=== PATIENT | male | born 1950 | race Caucasian/White ===

== ENCOUNTER 2019-02-26 13:42 | Emergency (ER) | payer OTHER ==
[2019-02-26 13:48] VITALS: BMI 30.7
[2019-02-26] MEDS ORDERED: ONDANSETRON 4 MG/2 ML VIAL IVPUSH ONE (13:51)
--- NOTE | 2019-02-26 13:51 | PDOC ---
Rapid Medical Evaluation Chief Complaint: Nausea/Vomiting Time Seen by Provider: 02/26/19 13:48 Medical Evaluation: Allergies Allergy/AdvReac Type Severity Reaction Status Date / Time No Known Allergies Allergy Verified 05/20/17 15:04 Vital Signs Temp Pulse Resp BP Pulse Ox 98 F 111 H 20 120/80 97 02/26/19 13:44 02/26/19 13:44 02/26/19 13:44 02/26/19 13:44 02/26/19 13:44 02/26/19 13:49 CC: lower abdominal pain with n/v and dizziness PE: ABD SNTND. Gait steady. Orders: abdominal w/u Patient will proceed to ED for continued evaluation. Discharge Disposition - Diagnosis Abdominal pain - Referrals - Patient Instructions - Post Discharge Activity
[2019-02-26] MEDS ORDERED: SODIUM CHLORIDE 1,000 ML IV STA (13:59)
[2019-02-26] MEDS ORDERED: MAG HYDROX/AL HYDROX/SIMETH 30 ML UNIT-DOSE CUP PO ONE (14:16)
[2019-02-26] MEDS ORDERED: FAMOTIDINE 20 MG/50 ML IVPB 20 MG/50 ML MG IVPB ONE ×2 (14:16→14:37)
[2019-02-26] MEDS ORDERED: ACETAMINOPHEN 1000 MG/100 ML VIAL (NON FORMULARY) IVPB ONE (14:16)
--- NOTE | 2019-02-26 14:23 | PDOC ---
History of Present Illness - General Chief Complaint: Nausea/Vomiting Stated Complaint: VOMITING/ ABD PAIN Time Seen by Provider: 02/26/19 13:48 History Source: Patient, Spouse Exam Limitations: Language Barrier - History of Present Illness Travel History: No Initial Comments: 02/26/19 14:19 68yo M with PMH of HTN, HLD presenting to ED with complaints of nausea and vomiting that started this AM around 0530. He has had 4 episodes of emesis which have been yellow in color. He has not tried eating anything due to the nausea. Last BM was this AM and was normal in consistency but he says it was a little amount. The pain is crampy, intermittent, in the lower abdomen and radiates to L flank. He denies recent travel, bloody stools, hematuria, dysuria , fevers, chills, chest pain, cough, recent travel, sick contacts. PMD: Brett PMH: see hpi PSH: mass removal? Meds: lisinopril Allergies: nkda Past History - Past Medical History Allergies/Adverse Reactions: Allergies Allergy/AdvReac Type Severity Reaction Status Date / Time No Known Allergies Allergy Verified 05/20/17 15:04 Home Medications: Ambulatory Orders Albuterol Sulfate Inhaler - [Ventolin HFA Inhaler -] 1 - 2 inh PO Q4H #1 inhaler 07/08/16 Ibuprofen 600 mg PO TID PRN #21 tablet 05/20/17 Lisinopril [Prinivil] 20 mg PO DAILY 05/20/17 Simvastatin 40 mg PO DAILY 05/20/17 Famotidine [Pepcid -] 20 mg PO BID #14 tablet 02/26/19 Hydrochlorothiazide [Hctz -] 12.5 mg PO DAILY 02/26/19 COPD: No Disorders: Yes (BURNING) HTN: Yes Hypercholesterolemia: Yes - Suicide/Smoking/Psychosocial Hx Smoking Status: No Smoking History: Never smoked Number of Cigarettes Smoked Daily: 0 Hx Alcohol Use: Yes Drug/Substance Use Hx: No Substance Use Type: Alcohol Hx Substance Use Treatment: No Review of Systems - Review of Systems Constitutional: No: Symptoms Reported HEENTM: No: Symptoms Reported Respiratory: No: Symptoms reported Cardiac (ROS): Yes: Lightheadedness ABD/GI: Yes: See HPI : No: Symptoms Reported Musculoskeletal: No: Symptoms Reported Integumentary: No: Symptoms Reported Neurological: No: Symptoms reported *Physical Exam - Vital Signs Last Vital Signs Temp Pulse Resp BP Pulse Ox 98 F 111 H 20 120/80 97 02/26/19 13:44 02/26/19 13:44 02/26/19 13:44 02/26/19 13:44 02/26/19 13:44 - Physical Exam General Appearance: Yes: Appropriately Dressed, Obese. No: Apparent Distress HEENT: positive: EOMI, JESSIKA, Normal ENT Inspection, Pharynx Normal Neck: positive: Trachea midline, Supple Respiratory/Chest: positive: Lungs Clear, Normal Breath Sounds. negative: Crackles, Rales, Rhonchi, Stridor, Wheezing Cardiovascular: positive: Regular Rhythm, Regular Rate, S1, S2. negative: Edema , JVD, Murmur Vascular Pulses: Dorsalis-Pedis (R): 2+, Doralis-Pedis (L): 2+ Gastrointestinal/Abdominal: positive: Normal Bowel Sounds, Tender (epigastric tenderness), Soft. negative: Distended, Guarding, Rebound Musculoskeletal: negative: CVA Tenderness Extremity: positive: Normal Capillary Refill Integumentary: positive: Normal Color, Dry, Warm Neurologic: positive: anesthesiology faculty II-XII NML intact, Fully Oriented, Alert, Normal Mood/ Affect, Normal Response, Motor Strength / ED Treatment Course - LABORATORY CBC & Chemistry Diagram: 02/26/19 14:20 02/26/19 14:20 Medical Decision Making - Medical Decision Making 02/26/19 14:23 68yo M with PMH of HTN, HLD presenting to ED with complaints of nausea and vomiting that started this AM around 0530. He has had 4 episodes of emesis which have been yellow in color. He has not tried eating anything due to the nausea. Last BM was this AM and was normal in consistency but he says it was a little amount. The pain is crampy, intermittent, in the lower abdomen and radiates to L flank. He denies recent travel, bloody stools, hematuria, dysuria , fevers, chills, chest pain, cough, recent travel, sick contacts. Vitals: PE: epigastric tenderness. ddx includes but not limited to atypical acs, gerd, gastritis, sbo, ileus, aaa labs, iv fluids, zofran, pepcid, maalox, tylenol, ctap 02/26/19 15:33 ekg: nsr at 93bpm. pr 158 qtc 427. no seth or depressions. wi in III. Flat T waves in V5-V6. No chest pain. pocus peformed by rotator: no hydro, normal aorta. CTAP: L adrenal cyst otherwise no acute patholoyg. labs wnl. patient feeling bettter. repeat exam no tenderness. tolerating po. safe for dc home. will give rx for pepcid and gi f/u. *DC/Admit/Observation/Transfer Diagnosis at time of Disposition: Abdominal pain Qualifiers: Abdominal location: unspecified location Qualified Code(s): R10.9 - Unspecified abdominal pain Nausea & vomiting Qualifiers: Vomiting type: unspecified Vomiting Intractability: non-intractable Qualified Code(s): R11.2 - Nausea with vomiting, unspecified - Discharge Dispostion Disposition: HOME Condition at time of disposition: Improved Decision to Admit order: No - Prescriptions Prescriptions: Famotidine [Pepcid -] 20 mg PO BID #14 tablet - Referrals Referrals: Franklin West MD [Primary Care Provider] - Stef Bateman MD [Staff Physician] - - Patient Instructions Printed Discharge Instructions: DI for Abdominal Pain-Adult, DI for Vomiting - - Adult Additional Instructions: You were seen in the emergency room today for abdominal pain, nausea and vomiting. The blood work is normal, and the CT scan is normal. You may have gastritis. I recommend a liquid diet for the next day or two. If you can tolerate that then you can move on to soft solids like bananas, rice, applesauce and toast. If you can tolerate that then you can eat a normal diet. Try not to drink alcohol, coffee, eat acidic, fried or fatty foods. A referral to a GI doctor is provided below. Please make an appointment with your primary care doctor this week regarding this ED visit. A prescription for an antacid was sent to your pharmacy. Take as directed. Come back to the emergency room for worsening pain, you have blood in the stool , you are unable to eat or drink anything, you develop fever or if any new concerning symptom develops. Thank you Hoy lo vieron en la rubén de emergencias por dolor abdominal, nuseas y vmitos. El anlisis de ermelinda es normal y la tomografa computarizada es normal. Puedes tener gastritis. Recomiendo man dieta lquida para el siguiente da o dos. Si puede tolerar eso, puede pasar a slidos blandos cortney pltanos, arroz, pur de manzana y tostadas. Si puedes tolerar eso, entonces puedes comer man dieta normal. Trate de no beber alcohol, caf, comer alimentos cidos, fritos o grasos. A continuacin se proporciona man derivacin a un mdico GI. [place] man ericka con elizondo mdico de atencin primaria esta semana con respecto a esta visita al [place]. Se envi man receta para un anticido a elizondo farmacia. Tmelo cortney se le indique. Regrese a la rubén de emergencias para empeorar el dolor, tiene ermelinda en las heces, no puede comer ni beber nada, desarrolla fiebre o si se desarrolla algn sntoma nuevo. Mynor Print Language: WELSH - Post Discharge Activity
[2019-02-26] MEDS ORDERED: ONDANSETRON 4 MG/2 ML VIAL ONE (14:32)
[2019-02-26 14:33] LABS: BASO % 0.1 % (0-2.0); EOS % 0.3 % (0-4.5); HEMATOCRIT 44.9 % (35.4-49); HEMOGLOBIN 15.4 GM/dL (11.7-16.9); LYMPH % 4.2 % (8-40); MCH 29.8 pg (25.7-33.7); MCHC 34.3 g/dl (32.0-35.9); MEAN CELL VOLUME 86.9 fl (80-96); MEAN PLT VOLUME 8.1 fl (7.5-11.1); MONO % 2.9 % (3.8-10.2); NEUT % 92.5 % (42.8-82.8); PLATELET COUNT 290 K/MM3 (134-434); RBC 5.17 M/mm3 (4.00-5.60); RDW 13.7 % (11.9-15.9); WHITE BLOOD COUNT 9.3 K/mm3 (4.0-10.0)
[2019-02-26] MEDS ORDERED: ACETAMINOPHEN INJECTION 100 ML IVPB ONE (14:37)
[2019-02-26] MEDS ORDERED: MAG HYDROX/AL HYDROX/SIMETH 30 ML UNIT-DOSE CUP ONE (14:37)
[2019-02-26 15:19] LABS: ALBUMIN 3.6 g/dl (3.4-5.0); ALK PHOS 53 U/L (45-117); ANION GAP 7 MMOL/L (8-16); BILIRUBIN,TOTAL 0.4 mg/dL (0.2-1); BLOOD UREA NITROGEN 18.3 mg/dL (7-18); CALCIUM 9.2 mg/dL (8.5-10.1); CHLORIDE 107 mmol/L (98-107); CO2 26 mmol/L (21-32); CREATININE 1.1 mg/dL (0.55-1.3); GLUCOSE,RANDOM 112 mg/dL (74-106); SGOT/AST 20 U/L (15-37); SGPT/ALT 21 U/L (13-61); SODIUM 140 mmol/L (136-145); TOT PROT 7.3 g/dl (6.4-8.2)
[2019-02-26 16:30] LABS: EPI CELLS 2.2 /HPF (0-5/HPF); HYALINE CASTS 11 /lpf (0-8); URINE APPEARANCE CLEAR; URINE BACTERIA 5.7 /hpf (NEGATIVE); URINE BILIRUBIN NEGATIVE (NEGATIVE); URINE COLOR YELLOW; URINE GLUCOSE (UA) NEGATIVE (NEGATIVE); URINE KETONE TRACE (NEGATIVE); URINE LEUK ESTERASE 2+ (NEGATIVE); URINE NITRITE NEGATIVE (NEGATIVE); URINE PROTEIN NEGATIVE (NEGATIVE); URINE RBC 7 /hpf (0-4); URINE UROBILINOGEN 0.2 mg/dL (0.2-1.0); URINE WBC 2 /hpf (0-5)
[2019-02-26 18:33] VITALS: BP 107/71; PULSE 67; TEMP 98
--- NOTE | 2019-02-27 16:16 | EKG ---
Test Reason : Blood Pressure : / mmHG Vent. Rate : 093 BPM Atrial Rate : 093 BPM P-R Int : 158 ms QRS Dur : 086 ms QT Int : 344 ms P-R-T Axes : 040 -14 008 degrees QTc Int : 427 ms NORMAL SINUS RHYTHM NORMAL ECG WHEN COMPARED WITH ECG OF 08-JUL-2016 10:53, NO SIGNIFICANT CHANGE WAS FOUND Confirmed by MD REBECA, STEVEN ([id number]) on 02/27/2019 4:16:08 PM Referred By: Confirmed By:STEVEN JOSE MD
== END 2019-02-26 18:36 | disposition home or self-care (01) ==
LOC: JER 13:42
PROC: 3E033NZ Introduction of Analgesics, Hypnotics, Sedatives into Peripheral Vein, Percutaneous Approach (ICD-10-PCS; principal; 2019-02-26)
PROC: 3E033GC Introduction of Other Therapeutic Substance into Peripheral Vein, Percutaneous Approach (ICD-10-PCS; 2019-02-26)
PROC: 3E0337Z Introduction of Electrolytic and Water Balance Substance into Peripheral Vein, Percutaneous Approach (ICD-10-PCS; 2019-02-26)
DX: R11.2 Nausea with vomiting, unspecified (principal); R10.30 Lower abdominal pain, unspecified; I10 Essential (primary) hypertension; E78.5 Hyperlipidemia, unspecified
CPT/HCPCS: 36415; 74177-TC; 80053; 81003; 83690; 84484; 85025; 87086; 93005; 93010; 96361; 96365; 96375; 99283-25; J0131; J7030

== ENCOUNTER 2019-08-27 17:18 | Emergency (ER) | payer OTHER ==
[2019-08-27 17:52] VITALS: BMI 30.7
--- NOTE | 2019-08-27 17:52 | PDOC ---
Rapid Medical Evaluation Chief Complaint: Wound Time Seen by Provider: 08/27/19 17:49 Medical Evaluation: Allergies Allergy/AdvReac Type Severity Reaction Status Date / Time No Known Allergies Allergy Verified 08/27/19 17:49 08/27/19 17:50 I performed a brief in-person evaluation of this patient. 68-year-old male with HTN, varicose veins presenting with 2 wks of right leg redness, pain, swelling. No CP or SOB. Pertinent physical exam findings: Large area of rerythema, induration right posterior thigh/ I have ordered the following: CBC, CMP, PT/INR RLE u/s r/o DVT Patient to proceed to ED for further evaluation. Discharge Disposition - Diagnosis Leg pain - Referrals - Patient Instructions - Post Discharge Activity
--- NOTE | 2019-08-27 18:29 | PDOC ---
History of Present Illness - General Chief Complaint: Wound Stated Complaint: PAIN Time Seen by Provider: 08/27/19 17:49 History Source: Patient - History of Present Illness Initial Comments: Mr. Minaya is a 68 y/o M w/hx HTN, HLD p/w two weeks of RLE pain, itching along a varicose vein. He reports that the varicose vein has been there for a long time, but has never become painful before. He reports that the pain is intermittent/localized over the vein, 02/17 and he presents today due to how long the symptoms have lasted. He denies hx of DVTs, PEs. He denies similar tender veins anywhere else, nor any prior vascular surgery or surgery of the RLE. Past History - Past Medical History Allergies/Adverse Reactions: Allergies Allergy/AdvReac Type Severity Reaction Status Date / Time No Known Allergies Allergy Verified 08/27/19 17:49 Home Medications: Ambulatory Orders Albuterol Sulfate Inhaler - [Ventolin HFA Inhaler -] 1 - 2 inh PO Q4H #1 inhaler 07/08/16 Ibuprofen 600 mg PO TID PRN #21 tablet 05/20/17 Lisinopril [Prinivil] 20 mg PO DAILY 05/20/17 Simvastatin 40 mg PO DAILY 05/20/17 Famotidine [Pepcid -] 20 mg PO BID #14 tablet 02/26/19 Rivaroxaban [Xarelto] 15 mg PO BID #42 tab 08/27/19 COPD: No Disorders: Yes (BURNING) HTN: Yes Hypercholesterolemia: Yes - Psycho Social/Smoking Cessation Hx Smoking Status: No Smoking History: Never smoked Number of Cigarettes Smoked Daily: 0 Hx Alcohol Use: No Drug/Substance Use Hx: No Substance Use Type: Alcohol Hx Substance Use Treatment: No Review of Systems - Review of Systems Able to Perform ROS?: Yes Comments:: GENERAL/CONSTITUTIONAL: No fever or chills. No weakness. HEAD, EYES, EARS, NOSE AND THROAT: No change in vision. No ear pain or discharge. No sore throat. CARDIOVASCULAR: No chest pain or shortness of breath RESPIRATORY: No cough, wheezing, or hemoptysis. GASTROINTESTINAL: No nausea, vomiting, diarrhea or constipation. GENITOURINARY: No dysuria, frequency, or change in urination. MUSCULOSKELETAL: RLE pain. No joint or muscle swelling or pain. No neck or back pain. SKIN: Varicose vein. No rash NEUROLOGIC: No headache, vertigo, loss of consciousness, or change in strength/sensation. ENDOCRINE: No increased thirst. No abnormal weight change HEMATOLOGIC/LYMPHATIC: No anemia, easy bleeding, or history of blood clots. ALLERGIC/IMMUNOLOGIC: No hives or skin allergy. *Physical Exam - Vital Signs Last Vital Signs Temp Pulse Resp BP Pulse Ox 97.8 F 79 18 153/83 97 08/27/19 17:50 08/27/19 17:50 08/27/19 17:50 08/27/19 17:50 08/27/19 17:50 - Physical Exam GENERAL: Awake, alert, and fully oriented, in no acute distress HEAD: No signs of trauma, normocephalic, atraumatic EYES: PERRLA, EOMI, sclera anicteric, conjunctiva clear ENT: Auricles normal inspection, hearing grossly normal, nares patent, or opharynx clear without exudates. Moist mucosa NECK: Normal ROM, supple, no lymphadenopathy, JVD, or masses LUNGS: No distress, speaks full sentences, clear to auscultation bilaterally HEART: Regular rate and rhythm, normal S1 and S2, no murmurs, rubs or gallops, peripheral pulses normal and equal bilaterally. ABDOMEN: Soft, nontender, normoactive bowel sounds. No guarding, no rebound. No masses EXTREMITIES : Superficial thrombophlebitis visualized over RLE. Otherwise Normal inspection, Normal range of motion, no edema. No clubbing or cyanosis NEUROLOGICAL: Cranial nerves II through XII grossly intact. Normal speech, normal gait, no focal sensorimotor deficits SKIN: Warm, Dry, normal turgor, no rashes or lesions noted Medical Decision Making - Medical Decision Making 08/27/19 18:32 68M w/hx HTN p/w pain, pruritis over R medial leg over distribution of existing varicose vein, likely representing superficial thrombophlebitis. Ddx includes uncomplicated thrombophlebitis vs blood clot formation within vein. Plan: Duplex US RLE Ibuprofen 600 mg for pain Xarelto Dispo: Discharge with xarelto, close follow up with vascular surgery. --- US - no DVT or clot visualized. Plan for discharge as above, alongside compression stockings, motrin for symptom control. Discharge - Discharge Information Problems reviewed: Yes Clinical Impression/Diagnosis: Superficial thrombophlebitis of right leg Leg pain Qualifiers: Laterality: right Qualified Code(s): M79.604 - Pain in right leg Condition: Stable Disposition: HOME - Admission No - Additional Discharge Information Prescriptions: Rivaroxaban [Xarelto] 15 mg PO BID #42 tab - Follow up/Referral Referrals: Franklin West MD [Primary Care Provider] - Josep Gunn MD [Non Staff, Medical] - - Patient Discharge Instructions Patient Printed Discharge Instructions: DI for Superficial Thrombophlebitis Additional Instructions: Usted fue evaluado en la rubén de urgencias por dolor de la pierna. Pensamos que elizondo dolor es resulto de halgo llamado "superficial thrombophlebitis". Man condicion donde man vena varicose se inflama, olivarez veces causado por un coagulo en la pierna. El ultrasonido demonstro un coagulo en elizondo vena. Por favor marietta Xarelto dos veces cada hayley. Melly medicamento hace elizondo ermelinda menos espeso - es muy importante que ve a elizondo doctor de cabezera esta semana que viene. Print Language: MALTESE - Post Discharge Activity
[2019-08-27] MEDS ORDERED: IBUPROFEN 600 MG TABLET (FP) PO ONE ×2 (18:30→18:33)
--- NOTE | 2019-08-27 18:33 | PDOC ---
Attending Attestation - Resident Resident Name: Mike Hudson - ED Attending Attestation I have performed the following: I have examined & evaluated the patient, The case was reviewed & discussed with the resident, I agree w/resident's findings & plan, Exceptions are as noted - HPI HPI: 08/27/19 18:31 68-year-old male presents with 2 weeks of right inner thigh itching and redness. There is a palpable varicose vein in that area. He denies any fever or chills, lower extremity swelling PCP is Dr. West - Physicial Exam PE: 08/27/19 18:32 68-year-old male alert and oriented and ambulatory to the ER Extremity right upper inner thigh has a superficial thrombophlebitis covers about 10 cm, there is no weeping ulcers, no cellulitis - Medical Decision Making 08/27/19 18:41 Duplex Doppler done on the right leg because of superficial thrombophlebitis is about 10 cm in length Patient has no fever or chills or nausea or vomiting his major complaint is itching to the site of his varicose vein in his upper right thigh and also is hard to touch There is no evidence of cellulitis Impression superficial thrombophlebitis/ But there is extensive thrombus in the saphenous vein patient will be started on anticoagulation follow-up with Dr. West and vascular surgery to discuss posible surgerical tx for his varicose veins Plan NSAIDs, xarelto, compression stockings, follow-up with vascular to discuss possibilities of surgical treatment to prevent repeat symptoms Discharge home 08/27/19 19:34
[2019-08-27] MEDS ORDERED: RIVAROXABAN 15 MG TABLET PO ONE (19:00)
[2019-08-27 19:57] VITALS: BP 137/87; PULSE 80; TEMP 97.7
== END 2019-08-27 19:58 | disposition home or self-care (01) ==
LOC: JER 17:18
DX: I80.01 Phlebitis and thrombophlebitis of superficial vessels of right lower extremity (principal); I10 Essential (primary) hypertension; I86.8 Varicose veins of other specified sites; E78.00 Pure hypercholesterolemia, unspecified
CPT/HCPCS: 93971-TC; 99284-25

== ENCOUNTER 2020-04-29 10:18 | Emergency (ER) | payer OTHER ==
[2020-04-29 10:40] VITALS: BP 120/81; PULSE 86; TEMP 98.8; BMI 37.8
--- OUTSIDE RECORDS SUMMARY | 2020-04-29 10:42 | XMS ---
:1950 Author Organization [facility] Support Name Relationship Address Phone RE Unavailable Unavailable Unavailable AMAN CARSON [address] [place] [address] Re-disclosure Warning The records that you are about to access may contain information from federally- assisted alcohol or drug abuse programs. If such information is present, then the following federally mandated warning applies: This information has been disclosed to you from records protected by federal confidentiality rules (42 CFR part 2). The federal rules prohibit you from making any further disclosure of this information unless further disclosure is expressly permitted by the written consent of the person to whom it pertains or as otherwise permitted by 42 CFR part 2. A general authorization for the release of medical or other information is NOT sufficient for this purpose. The Federal rules restrict any use of the information to criminally investigate or prosecute any alcohol or drug abuse patient.The records that you are about to access may contain highly sensitive health information, the redisclosure of which is protected by Article 27-F of the [facility] Public Health law. If you continue you may haveaccess to information: Regarding HIV / AIDS; Provided by facilities licensed or operated by the [facility] Office of Mental Health; or Provided by the [facility] Office for People With Developmental Disabilities. If such information is present, then the following [facility] mandated warning applies: This information has been disclosed to you from confidential records which are protected by state law. State law prohibits you from making any further disclosure of this information without the specific written consent of the person to whom it pertains, or as otherwise permitted by law. Any unauthorized further disclosure in violation of state law may result in a fine or [place] [facility] sentence or both. A general authorization for the release of medical or other information is NOT sufficient authorization for further disclosure. Insurance Providers Payer name Policy type Policy ID Covered Covered libertarian's Policy P gabe / Coverage libertarian ID relationship to [employer] type [employer] MEDICAID [id number] SP [id number] MEDICARE [id number] [place] MED[place] [id number] 1 [id number] PART B [facility] MEDICAID OF [id number] [facility] OF [id number] [place] MEDIC[place] [id number] A Results ID Date Data Source [id number] 01/12/2020 11:09:00 AM EDT [facility] Name Value Range Interpretation Code Description Data Jeanie rce(s) Supporting Document(s ) COV2 [facility] This lab was ordered by KELVIN flannery nd reported by [facility] - [place]. Procedure
--- NOTE | 2020-04-29 10:48 | PDOC ---
History of Present Illness - General Chief Complaint: Cold Symptoms Stated Complaint: COLD LIKE SYMPTOMS Time Seen by Provider: 04/29/20 10:42 History Source: Patient Exam Limitations: No Limitations - History of Present Illness Initial Comments: 04/29/20 10:47 70-year-old male past medical history hypertension presenting to the ED with flulike symptoms. Patient states that she has cough and body aches since Tuesday with associated yellow sputum. Patient recently was Covid negative on 04/14 for an endoscopy. Patient states that she is also experiencing body aches but denie s any other symptoms including fevers, chills, syncope, lightheadedness, dizziness, headaches, neck pain, chest pain, shortness of breath, palpitations, back pain, abdominal pain, nausea, vomiting, diarrhea, constipation. Past History - Medical History Allergies/Adverse Reactions: Allergies Allergy/AdvReac Type Severity Reaction Status Date / Time No Known Allergies Allergy Verified 04/29/20 10:34 Home Medications: Ambulatory Orders Albuterol Sulfate Inhaler - [Ventolin HFA Inhaler -] 1 - 2 inh PO Q4H #1 inhaler 07/08/16 Ibuprofen 600 mg PO TID PRN #21 tablet 05/20/17 Lisinopril [Prinivil] 20 mg PO DAILY 05/20/17 Simvastatin 40 mg PO DAILY 05/20/17 Famotidine [Pepcid -] 20 mg PO BID #14 tablet 02/26/19 Rivaroxaban [Xarelto] 15 mg PO BID #42 tab 08/27/19 COPD: No Disorders: Yes (BURNING) HTN: Yes Hypercholesterolemia: Yes - Psycho-Social/Smoking History Smoking Status: No Smoking History: Never smoked Have you smoked in the past 12 months: No Number of Cigarettes Smoked Daily: 0 - Substance Abuse Hx (Audit-C & DAST Scrn) How often the patient has a drink containing alcohol: Never Score: In Men: 4 or > Positive; In Women: 3 or > Positive: 0 Screen Result (Pos requires Nsg. Audit-10AR): Negative In the last yr the pt used illegal drug/Rx for NonMed reason: No Score: Yes response is considered Positive: 0 Screen Result (Positive result requires Nsg. DAST-10): Negative *Physical Exam - Vital Signs Last Vital Signs Temp Pulse Resp BP Pulse Ox 98.8 F 86 18 120/81 100 04/29/20 10:34 04/29/20 10:34 04/29/20 10:34 04/29/20 10:34 04/29/20 10:34 - Physical Exam 04/29/20 10:47 Gen: AAOx 3, no acute distress, comfortable, no signs of respiratory distress HENT: atraumatic, normocephalic with no laceration or contusion. Nasal mucosa without erythema. Oropharynx without erythema or exudates. Mucous membranes moist. EYES: PERRL, EOM intact, conjunctiva pink NECK: supple; trachea midline; no JVD, no lymphadenopathy, or thyromegaly CV: RRR no murmurs, gallops, or rubs. CHEST: CTA b/l no wheezing, rales or rhonchi ABD: +BS/ND. no TTP; soft, no rebound, no guarding EXTREMITY: no cyanosis or erythema. 2+ dorsalis pedis, posterior tibial, and radial pulse. No pedal edema; no calf swelling or tenderness SKIN: no rash, warm and dry, no diaphoresis HEME: no purpura or ecchymosis NEURO: normal speech, CN II-XII intact, sensation intact, normal gait, no cerebellar deficits MS: 5/5 strength in all extremities, FROM intact in all extremities. ED Treatment Course - RADIOLOGY Radiology Studies Ordered: Category Date Time Status PORTCXR [CHEST X-RAY PORTABLE*] [RAD] Stat Radiology 04/29/20 10:42 Ordered Medical Decision Making - Medical Decision Making 04/29/20 10:48 69 year old male with cough and body aches Vital signs stable (afebrile nontachycardic and satting 100% on room air) As precaution will obtain Covid testing and portable chest x-ray Will reassess based on results Chest x-ray within normal limits Patient given Covid isolation precautions and will be called with Covid results within 2 days Pt appears well and is safe and stable for discharge with strict return precautions including signs and symptoms requring immediate return to the ED Supportive care instructions explained and given to pt. Reasons to return emergently to ER explained and given. Importance of follow up with PMD and other specialists as indicated stressed to pt. Pt verbalized understanding of instructions. Pt to follow up with PMD in 2 days Discharge - Discharge Information Problems reviewed: Yes Clinical Impression/Diagnosis: Cough Condition: Stable Disposition: HOME - Follow up/Referral Referrals: Franklin West MD [Primary Care Provider] - - Patient Discharge Instructions Patient Printed Discharge Instructions: DI for Viral Upper Respiratory Infection -- Adult, SJR - Coronavirus Instructions Print Language: FINNISH - Post Discharge Activity
== END 2020-04-29 11:19 | disposition home or self-care (01) ==
LOC: JER 10:18 → JERFT 10:18
DX: R05 Cough (principal); Z03.818 Encounter for observation for suspected exposure to other biological agents ruled out
CPT/HCPCS: 71045-TC-FY; 99283-25; C9803; U0003

== ENCOUNTER 2022-07-18 23:03 | Inpatient (IN) | payer OTHER ==
[2022-07-18 23:10] VITALS: BMI 30.7
[2022-07-19] MEDS ORDERED: ACETAMINOPHEN 1000 MG/100 ML BAG IVPB ONE (00:15)
[2022-07-19 00:47] LABS: EPI CELLS 1 /uL (0-25.1); HYALINE CASTS 3 /uL (0-3.1); URINE APPEARANCE CLEAR; URINE BACTERIA >9,000 /uL (0-1359); URINE BILIRUBIN NEGATIVE (NEGATIVE); URINE COLOR YELLOW; URINE GLUCOSE (UA) NEGATIVE (NEGATIVE); URINE KETONE NEGATIVE (NEGATIVE); URINE LEUK ESTERASE 2+ (NEGATIVE); URINE NITRITE POSITIVE (NEGATIVE); URINE PROTEIN 1+ (NEGATIVE); URINE RBC 26 /uL (0-23.9); URINE WBC 457 /uL (0-25.8)
[2022-07-19] MEDS ORDERED: SODIUM CHLORIDE 0.9% 500 ML INFUS.BAG IV ONE (01:10)
[2022-07-19] MEDS ORDERED: CEFTRIAXONE 1,000 MG in DEXTROSE 5%-WATER - 50 ML IVPB ONE (01:10)
[2022-07-19] MEDS ORDERED: ACETAMINOPHEN INJECTION 100 ML IVPB ONE (01:27)
[2022-07-19] MEDS ORDERED: CEFTRIAXONE 1 GM/50 ML BAG ONE (01:28)
[2022-07-19 01:38] LABS: BASO % 0.4 % (0-2.0); EOS % 0.1 % (0-4.5); HEMATOCRIT 43.2 % (35.4-49); HEMOGLOBIN 14.5 GM/dL (11.7-16.9); LYMPH % 9.6 % (8-40); MCH 28.3 pg (25.7-33.7); MCHC 33.6 g/dl (32.0-35.9); MEAN CELL VOLUME 84.1 fl (80-96); MEAN PLT VOLUME 7.7 fl (7.5-11.1); MONO % 7.1 % (3.8-10.2); NEUT % 82.8 % (42.8-82.8); PLATELET COUNT 324 10^3/uL (134-434); RBC 5.13 M/mm3 (4.00-5.60); RDW 14.4 % (11.9-15.9); WHITE BLOOD COUNT 11.8 K/mm3 (4.0-10.0)
[2022-07-19 02:51] LABS: BLOOD UREA NITROGEN 12.6 mg/dL (7-18); CALCIUM 9.6 mg/dL (8.5-10.1)
[2022-07-19 02:52] LABS: ALBUMIN 3.2 g/dl (3.4-5.0)
[2022-07-19 02:54] LABS: CREATININE 1.3 mg/dL (0.55-1.3)
[2022-07-19 02:56] LABS: BILIRUBIN,TOTAL 0.5 mg/dL (0.2-1); TOT PROT 7.2 g/dl (6.4-8.2)
[2022-07-19] MEDS ORDERED: SODIUM CHLORIDE 1,000 ML IV SCH (03:45)
[2022-07-19] MEDS ORDERED: KETOROLAC TROMETHAMINE 15 MG/ML VIAL IVPUSH PRN (04:27)
[2022-07-19] MEDS ORDERED: HEPARIN NA (PORCINE) 5,000 UNITS/ML 1ML VIAL ONE (06:20)
[2022-07-19] MEDS: HEPARIN NA (PORCINE) 5,000 UNITS/ML 1ML VIAL SQ SCH ×3 (06:53→22:54)
[2022-07-19] MEDS ORDERED: TAMSULOSIN HCL 0.4 MG CAP PO SCH (08:30)
[2022-07-19] MEDS: TAMSULOSIN HCL 0.4 MG CAP PO SCH (08:56)
[2022-07-19] MEDS: metoPROLOL SUCCINATE 25 MG TAB.SR.24H (FP) PO SCH (09:28)
[2022-07-19] MEDS: LISINOPRIL 20 MG TABLET PO SCH (09:28)
[2022-07-19] MEDS ORDERED: CEFTRIAXONE 1 GM in DEXTROSE 5%-WATER - 50 ML IVPB SCH (10:00)
[2022-07-19] MEDS ORDERED: PATIENT'S OWN MEDICATION (NON-FORMULARY) (Lisinopril/Hydrochlorothiazide [Lisinopril-Hctz PO SCH (10:00)
[2022-07-19] MEDS ORDERED: HYDROCHLOROTHIAZIDE 12.5 MG CAPSULE (FP) PO SCH (10:00)
[2022-07-19 11:45] LABS: BASO % 0.3 % (0-2.0); EOS % 0.5 % (0-4.5); HEMATOCRIT 43.2 % (35.4-49); HEMOGLOBIN 14.3 GM/dL (11.7-16.9); LYMPH % 13.7 % (8-40); MCH 27.9 pg (25.7-33.7); MCHC 33.1 g/dl (32.0-35.9); MEAN CELL VOLUME 84.3 fl (80-96); MEAN PLT VOLUME 8.5 fl (7.5-11.1); MONO % 8.1 % (3.8-10.2); NEUT % 77.4 % (42.8-82.8); PLATELET COUNT 326 10^3/uL (134-434); RBC 5.13 M/mm3 (4.00-5.60); RDW 14.5 % (11.9-15.9); WHITE BLOOD COUNT 11.2 K/mm3 (4.0-10.0)
[2022-07-19 11:50] LABS: INR 1.26 (0.83-1.09); PROTHROMBIN TIME (PATIENT) 14.5 SEC (9.7-13.0)
[2022-07-19 12:09] LABS: CALCIUM 9.4 mg/dL (8.5-10.1)
[2022-07-19 12:10] LABS: MAGNESIUM 2.2 mg/dL (1.8-2.4)
[2022-07-19 12:13] LABS: CREATININE 1.1 mg/dL (0.55-1.3); PHOSPHOROUS 3.1 mg/dL (2.5-4.9)
[2022-07-19 12:14] LABS: TOT PROT 7.2 g/dl (6.4-8.2)
[2022-07-19 12:15] LABS: BILIRUBIN,TOTAL 0.5 mg/dL (0.2-1)
[2022-07-19] MEDS: ROSUVASTATIN CA 20 MG TABLET PO SCH (22:54)
[2022-07-20] MEDS: CEFTRIAXONE 1 GM in DEXTROSE 5%-WATER - 50 ML IVPB SCH (01:55)
[2022-07-20] MEDS: HEPARIN NA (PORCINE) 5,000 UNITS/ML 1ML VIAL SQ SCH ×3 (05:27→21:09)
[2022-07-20] MEDS: TAMSULOSIN HCL 0.4 MG CAP PO SCH (08:33)
[2022-07-20] MEDS: LISINOPRIL 20 MG TABLET PO SCH (09:26)
[2022-07-20] MEDS: metoPROLOL SUCCINATE 25 MG TAB.SR.24H (FP) PO SCH (09:26)
[2022-07-20 09:34] LABS: BASO % 0.2 % (0-2.0); EOS % 0.3 % (0-4.5); HEMOGLOBIN 12.9 GM/dL (11.7-16.9); LYMPH % 12.5 % (8-40); MCH 27.8 pg (25.7-33.7); MCHC 33.2 g/dl (32.0-35.9); MEAN CELL VOLUME 83.9 fl (80-96); MEAN PLT VOLUME 8.2 fl (7.5-11.1); MONO % 8.6 % (3.8-10.2); NEUT % 78.4 % (42.8-82.8); PLATELET COUNT 308 10^3/uL (134-434); RBC 4.64 M/mm3 (4.00-5.60); RDW 14.2 % (11.9-15.9); WHITE BLOOD COUNT 12.5 K/mm3 (4.0-10.0)
[2022-07-20 09:58] LABS: CALCIUM 8.4 mg/dL (8.5-10.1)
[2022-07-20 09:59] LABS: ALBUMIN 2.6 g/dl (3.4-5.0); BLOOD UREA NITROGEN 14.9 mg/dL (7-18); MAGNESIUM 2.1 mg/dL (1.8-2.4)
[2022-07-20 10:01] LABS: PHOSPHOROUS 3.2 mg/dL (2.5-4.9)
[2022-07-20 10:02] LABS: CREATININE 1.2 mg/dL (0.55-1.3)
[2022-07-20 10:03] LABS: BILIRUBIN,TOTAL 0.6 mg/dL (0.2-1); TOT PROT 6.3 g/dl (6.4-8.2)
[2022-07-20] MEDS: ROSUVASTATIN CA 20 MG TABLET PO SCH (21:09)
[2022-07-21] MEDS: CEFTRIAXONE 1 GM in DEXTROSE 5%-WATER - 50 ML IVPB SCH (01:17)
[2022-07-21 04:56] VITALS: RESP 18
[2022-07-21] MEDS: HEPARIN NA (PORCINE) 5,000 UNITS/ML 1ML VIAL SQ SCH ×3 (06:05→21:12)
[2022-07-21] MEDS: LISINOPRIL 20 MG TABLET PO SCH (09:10)
[2022-07-21] MEDS: metoPROLOL SUCCINATE 25 MG TAB.SR.24H (FP) PO SCH (09:10)
[2022-07-21] MEDS: TAMSULOSIN HCL 0.4 MG CAP PO SCH (09:10)
[2022-07-21] MEDS ORDERED: LIDOCAINE 5% TOPICAL PATCH TP ONE (10:00)
[2022-07-21] MEDS ORDERED: traMADol HCL 50 MG TABLET PO PRN (10:14)
[2022-07-21] MEDS ORDERED: ACETAMINOPHEN 500 MG TABLET (FP) PO PRN (10:14)
[2022-07-21 10:57] LABS: BASO % 0.1 % (0-2.0); EOS % 0.9 % (0-4.5); HEMATOCRIT 40.4 % (35.4-49); HEMOGLOBIN 13.5 GM/dL (11.7-16.9); LYMPH % 13.3 % (8-40); MCH 27.8 pg (25.7-33.7); MCHC 33.4 g/dl (32.0-35.9); MEAN CELL VOLUME 83.3 fl (80-96); MONO % 7.8 % (3.8-10.2); NEUT % 77.9 % (42.8-82.8); PLATELET COUNT 355 10^3/uL (134-434); RBC 4.85 M/mm3 (4.00-5.60); RDW 13.9 % (11.9-15.9); WHITE BLOOD COUNT 9.8 K/mm3 (4.0-10.0)
[2022-07-21 11:58] LABS: CALCIUM 8.9 mg/dL (8.5-10.1)
[2022-07-21 11:59] LABS: ALBUMIN 2.7 g/dl (3.4-5.0); BLOOD UREA NITROGEN 13.9 mg/dL (7-18); MAGNESIUM 2.4 mg/dL (1.8-2.4)
[2022-07-21 12:02] LABS: CREATININE 1.1 mg/dL (0.55-1.3); PHOSPHOROUS 2.7 mg/dL (2.5-4.9)
[2022-07-21 12:03] LABS: BILIRUBIN,TOTAL 0.6 mg/dL (0.2-1); TOT PROT 6.9 g/dl (6.4-8.2)
[2022-07-21] MEDS: ROSUVASTATIN CA 20 MG TABLET PO SCH (21:12)
[2022-07-21] MEDS ORDERED: LIDOCAINE PATCH REMOVAL MC SCH (22:00)
[2022-07-22] MEDS: CEFTRIAXONE 1 GM in DEXTROSE 5%-WATER - 50 ML IVPB SCH (00:38)
[2022-07-22] MEDS: HEPARIN NA (PORCINE) 5,000 UNITS/ML 1ML VIAL SQ SCH ×3 (07:00→22:50)
[2022-07-22] MEDS: TAMSULOSIN HCL 0.4 MG CAP PO SCH (08:31)
[2022-07-22] MEDS: LISINOPRIL 20 MG TABLET PO SCH (09:21)
[2022-07-22] MEDS: metoPROLOL SUCCINATE 25 MG TAB.SR.24H (FP) PO SCH (09:21)
[2022-07-22 11:05] LABS: BASO % 0.5 % (0-2.0); EOS % 2.5 % (0-4.5); HEMOGLOBIN 13.2 GM/dL (11.7-16.9); LYMPH % 22.1 % (8-40); MCH 28.6 pg (25.7-33.7); MCHC 33.9 g/dl (32.0-35.9); MEAN CELL VOLUME 84.4 fl (80-96); MEAN PLT VOLUME 7.7 fl (7.5-11.1); NEUT % 63.9 % (42.8-82.8); PLATELET COUNT 363 10^3/uL (134-434); RBC 4.62 M/mm3 (4.00-5.60); RDW 14.4 % (11.9-15.9); WHITE BLOOD COUNT 6.4 K/mm3 (4.0-10.0)
[2022-07-22 11:57] LABS: CALCIUM 8.7 mg/dL (8.5-10.1)
[2022-07-22 11:58] LABS: ALBUMIN 2.6 g/dl (3.4-5.0); BLOOD UREA NITROGEN 12.6 mg/dL (7-18); MAGNESIUM 2.1 mg/dL (1.8-2.4)
[2022-07-22 12:01] LABS: CREATININE 1.1 mg/dL (0.55-1.3); PHOSPHOROUS 3.1 mg/dL (2.5-4.9)
[2022-07-22 12:02] LABS: BILIRUBIN,TOTAL 0.2 mg/dL (0.2-1); TOT PROT 6.7 g/dl (6.4-8.2)
[2022-07-22] MEDS: DOXYCYCLINE HYCLATE 100 MG CAPSULE PO SCH (17:35)
[2022-07-22] MEDS: POLYETHYLENE GLYCOL (HEALTHYLAX) 3350 17 GM PACKET PO SCH (22:50)
[2022-07-22] MEDS: ROSUVASTATIN CA 20 MG TABLET PO SCH (22:51)
[2022-07-23] MEDS: CEFTRIAXONE 1 GM in DEXTROSE 5%-WATER - 50 ML IVPB SCH ×2 (03:17→03:33)
[2022-07-23] MEDS: HEPARIN NA (PORCINE) 5,000 UNITS/ML 1ML VIAL SQ SCH ×2 (06:14→15:43)
[2022-07-23] MEDS: TAMSULOSIN HCL 0.4 MG CAP PO SCH (08:32)
[2022-07-23] MEDS: POLYETHYLENE GLYCOL (HEALTHYLAX) 3350 17 GM PACKET PO SCH (10:20)
[2022-07-23] MEDS: LISINOPRIL 20 MG TABLET PO SCH (10:20)
[2022-07-23] MEDS: metoPROLOL SUCCINATE 25 MG TAB.SR.24H (FP) PO SCH (10:20)
[2022-07-23] MEDS: DOXYCYCLINE HYCLATE 100 MG CAPSULE PO SCH (10:20)
[2022-07-23 10:48] LABS: BASO % 0.4 % (0-2.0); EOS % 2.9 % (0-4.5); HEMATOCRIT 40.9 % (35.4-49); HEMOGLOBIN 13.7 GM/dL (11.7-16.9); LYMPH % 30.3 % (8-40); MCH 28.2 pg (25.7-33.7); MCHC 33.6 g/dl (32.0-35.9); MEAN CELL VOLUME 83.8 fl (80-96); MEAN PLT VOLUME 7.4 fl (7.5-11.1); MONO % 8.3 % (3.8-10.2); NEUT % 58.1 % (42.8-82.8); PLATELET COUNT 414 10^3/uL (134-434); RBC 4.88 M/mm3 (4.00-5.60); WHITE BLOOD COUNT 5.8 K/mm3 (4.0-10.0)
[2022-07-23 11:14] LABS: ALBUMIN 2.9 g/dl (3.4-5.0); BLOOD UREA NITROGEN 12.4 mg/dL (7-18); CALCIUM 9.3 mg/dL (8.5-10.1); MAGNESIUM 2.2 mg/dL (1.8-2.4)
[2022-07-23 11:16] LABS: CREATININE 1.2 mg/dL (0.55-1.3); PHOSPHOROUS 3.3 mg/dL (2.5-4.9)
[2022-07-23 11:18] LABS: BILIRUBIN,TOTAL 0.2 mg/dL (0.2-1); TOT PROT 7.1 g/dl (6.4-8.2)
[2022-07-23 14:17] VITALS: BP 125/70; PULSE 71; TEMP 98.5
== END 2022-07-23 15:43 | disposition home or self-care (01) | DRG 728 ==
LOC: JER 23:03 → JERBED 07-19 03:26 → J6S 07-19 06:43
PROVIDERS: ADMIT Internal Medicine; ATTEND Internal Medicine
DX: N45.3 Epididymo-orchitis (principal); N13.30 Unspecified hydronephrosis; N12 Tubulo-interstitial nephritis, not specified as acute or chronic; I10 Essential (primary) hypertension; E78.5 Hyperlipidemia, unspecified; I86.1 Scrotal varices; N50.819 Testicular pain, unspecified
CPT/HCPCS: 36415; 71045-TC-FY; 74176-TC; 76870-TC; 80053; 81003; 83735; 84100; 84153; 85025; 85610; 86850; 86900; 86901; 87040; 87086; 87186; 93005; 93010; 97116-GP; 97162-GP; 99285-25; C9803-CS; J1644; U0003; U0005

== ENCOUNTER 2022-08-16 06:49 | Emergency (ER) | payer OTHER ==
[2022-08-16 07:35] VITALS: BMI 31.4
[2022-08-16 09:28] LABS: BASO % 0.2 % (0-2.0); EOS % 1.9 % (0-4.5); HEMATOCRIT 42.6 % (35.4-49); HEMOGLOBIN 14.2 GM/dL (11.7-16.9); LYMPH % 17.5 % (8-40); MCH 28.1 pg (25.7-33.7); MCHC 33.3 g/dl (32.0-35.9); MEAN CELL VOLUME 84.2 fl (80-96); MEAN PLT VOLUME 7.7 fl (7.5-11.1); MONO % 5.5 % (3.8-10.2); NEUT % 74.9 % (42.8-82.8); PLATELET COUNT 291 10^3/uL (134-434); RBC 5.06 M/mm3 (4.00-5.60); RDW 14.8 % (11.9-15.9); WHITE BLOOD COUNT 8.5 K/mm3 (4.0-10.0)
[2022-08-16 09:50] LABS: CALCIUM 9.1 mg/dL (8.5-10.1)
[2022-08-16 09:51] LABS: ALBUMIN 3.4 g/dl (3.4-5.0); BLOOD UREA NITROGEN 12.9 mg/dL (7-18)
[2022-08-16 09:54] LABS: CREATININE 1.2 mg/dL (0.55-1.3)
[2022-08-16 09:55] LABS: BILIRUBIN,TOTAL 0.4 mg/dL (0.2-1)
[2022-08-16 09:56] LABS: TOT PROT 7.2 g/dl (6.4-8.2)
[2022-08-16 10:15] LABS: EPI CELLS 11 /uL (0-25.1); HYALINE CASTS 13 /uL (0-3.1); PH,URINE 5.5 (5.0-8.0); URINE APPEARANCE TURBID; URINE BACTERIA 34 /uL (0-1359); URINE BILIRUBIN NEGATIVE (NEGATIVE); URINE COLOR RED; URINE GLUCOSE (UA) NEGATIVE (NEGATIVE); URINE KETONE NEGATIVE (NEGATIVE); URINE LEUK ESTERASE 2+ (NEGATIVE); URINE NITRITE NEGATIVE (NEGATIVE); URINE PROTEIN 4+ (NEGATIVE); URINE UROBILINOGEN 0.2 mg/dL (0.2-1.0); URINE WBC 5482 /uL (0-25.8)
[2022-08-16 11:16] VITALS: BP 112/61; PULSE 88; RESP 16; TEMP 97.8
[2022-08-16 12:22] LABS: URINE RBC 24679 /uL (0-23.9)
[2022-08-16 12:23] LABS: YEAST NEGATIVE (NEGATIVE)
== END 2022-08-16 11:16 | disposition home or self-care (01) ==
LOC: JER 06:49
DX: N30.01 Acute cystitis with hematuria (principal)
CPT/HCPCS: 36415; 80053; 81003; 85025; 87086; 87186; 99283-25

== ENCOUNTER 2022-09-03 08:46 | Inpatient (IN) | payer OTHER ==
[2022-09-03 09:01] VITALS: BMI 33.2
[2022-09-03] MEDS ORDERED: ASPIRIN 81 MG CHEWABLE TABLETS PO ONE (09:25)
[2022-09-03] MEDS ORDERED: ASPIRIN 81 MG CHEWABLE TABLETS ONE (09:27)
[2022-09-03 10:23] LABS: BASO % 0.4 % (0-2.0); EOS % 1.3 % (0-4.5); HEMATOCRIT 37.9 % (35.4-49); HEMOGLOBIN 12.9 GM/dL (11.7-16.9); LYMPH % 19.4 % (8-40); MCH 28.3 pg (25.7-33.7); MCHC 33.9 g/dl (32.0-35.9); MEAN CELL VOLUME 83.4 fl (80-96); MEAN PLT VOLUME 8.4 fl (7.5-11.1); MONO % 9.1 % (3.8-10.2); NEUT % 69.8 % (42.8-82.8); PLATELET COUNT 319 10^3/uL (134-434); RBC 4.55 M/mm3 (4.00-5.60); WHITE BLOOD COUNT 6.5 K/mm3 (4.0-10.0)
[2022-09-03 10:27] LABS: INR 1.16 (0.83-1.09); PROTHROMBIN TIME (PATIENT) 13.4 SEC (9.7-13.0)
[2022-09-03 10:30] LABS: ACTIVATED PTT 33.6 SECONDS (25.2-36.5)
[2022-09-03 10:39] LABS: CHLORIDE 101 mmol/L (98-107)
[2022-09-03 10:41] LABS: ALBUMIN 2.7 g/dl (3.4-5.0)
[2022-09-03 10:45] LABS: CREATININE 1.5 mg/dL (0.55-1.3)
[2022-09-03 10:46] LABS: TOT PROT 8.6 g/dl (6.4-8.2)
[2022-09-03 11:14] LABS: ALK PHOS 54 U/L (45-117); ANION GAP -1 MMOL/L (8-16); BLOOD UREA NITROGEN 20.5 mg/dL (7-18); CALCIUM 8.7 mg/dL (8.5-10.1); CO2 24 mmol/L (21-32); GLUCOSE,RANDOM 87 mg/dL (74-106); MAGNESIUM 2.5 mg/dL (1.8-2.4); SODIUM 124 mmol/L (136-145)
[2022-09-03] MEDS ORDERED: SODIUM CHLORIDE 0.9% 500 ML INFUS.BAG IV ONE (11:24)
[2022-09-03] MEDS ORDERED: ACETAMINOPHEN 325 MG TABLET (FP) PO ONE (11:43)
[2022-09-03] MEDS ORDERED: ACETAMINOPHEN 325 MG TABLET (FP) ONE (11:48)
[2022-09-03 12:31] LABS: CALCIUM 9.1 mg/dL (8.5-10.1)
[2022-09-03 12:32] LABS: ALBUMIN 2.9 g/dl (3.4-5.0); BLOOD UREA NITROGEN 19.5 mg/dL (7-18)
[2022-09-03 12:35] LABS: CREATININE 1.4 mg/dL (0.55-1.3)
[2022-09-03 12:36] LABS: EPI CELLS 1 /uL (0-25.1); HYALINE CASTS 0 /uL (0-3.1); URINE APPEARANCE CLEAR; URINE BACTERIA >9,000 /uL (0-1359); URINE BILIRUBIN NEGATIVE (NEGATIVE); URINE COLOR YELLOW; URINE GLUCOSE (UA) NEGATIVE (NEGATIVE); URINE KETONE NEGATIVE (NEGATIVE); URINE LEUK ESTERASE 2+ (NEGATIVE); URINE NITRITE POSITIVE (NEGATIVE); URINE PROTEIN NEGATIVE (NEGATIVE); URINE RBC 11 /uL (0-23.9); URINE UROBILINOGEN 0.2 mg/dL (0.2-1.0); URINE WBC 139 /uL (0-25.8)
[2022-09-03 12:36] LABS: BILIRUBIN,TOTAL 0.7 mg/dL (0.2-1)
[2022-09-03 12:38] LABS: TOT PROT 6.8 g/dl (6.4-8.2)
[2022-09-03] MEDS ORDERED: PIPERACILLIN/TAZOB 4.5 GM 4.5 GM in DEXTROSE 5%-WATER 100 ML IVPB ONE (12:59)
[2022-09-03] MEDS ORDERED: PIPERACILLIN/TAZOB 4.5 GM 4.5 GM/100 ML BAG IVPB ONE (13:11)
[2022-09-03] MEDS: LACTATED RINGERS SOLUTION 1,000 ML IV SCH (15:55)
[2022-09-03] MEDS ORDERED: MEROPENEM 1 GM VIAL (RESTRICTED TO ID) IVPB ONE (17:06)
[2022-09-03] MEDS: MEROPENEM 1 GM in DEXTROSE 5%-WATER 100 ML IVPB SCH (17:17)
[2022-09-03] MEDS ORDERED: MEROPENEM 1 GM in DEXTROSE 5%-WATER 100 ML IVPB SCH (18:00)
[2022-09-04] MEDS: MEROPENEM 1 GM in DEXTROSE 5%-WATER 100 ML IVPB SCH ×2 (01:24→09:09)
[2022-09-04] MEDS: LACTATED RINGERS SOLUTION 1,000 ML IV SCH ×2 (01:30→17:38)
[2022-09-04] MEDS: FINASTERIDE 5 MG TABLET (FP) PO SCH (09:08)
[2022-09-04] MEDS: ENOXAPARIN NA (PORCINE) 40 MG/0.4 ML DISP.SYRIN SQ SCH (09:08)
[2022-09-04] MEDS: TAMSULOSIN HCL 0.4 MG CAP PO SCH (09:08)
[2022-09-04] MEDS: metoPROLOL SUCCINATE 25 MG TAB.SR.24H (FP) PO SCH (09:08)
[2022-09-04 10:53] LABS: BASO % 0.5 % (0-2.0); EOS % 3.2 % (0-4.5); HEMATOCRIT 36.8 % (35.4-49); HEMOGLOBIN 12.3 GM/dL (11.7-16.9); LYMPH % 26.3 % (8-40); MCH 27.9 pg (25.7-33.7); MCHC 33.5 g/dl (32.0-35.9); MEAN CELL VOLUME 83.1 fl (80-96); MEAN PLT VOLUME 7.7 fl (7.5-11.1); MONO % 9.4 % (3.8-10.2); NEUT % 60.6 % (42.8-82.8); PLATELET COUNT 332 10^3/uL (134-434); RBC 4.42 M/mm3 (4.00-5.60); RDW 14.7 % (11.9-15.9); WHITE BLOOD COUNT 4.6 K/mm3 (4.0-10.0)
[2022-09-04 11:28] LABS: ALBUMIN 2.7 g/dl (3.4-5.0); BLOOD UREA NITROGEN 13.9 mg/dL (7-18); PHOSPHOROUS 2.6 mg/dL (2.5-4.9)
[2022-09-04 11:30] LABS: TOT PROT 6.3 g/dl (6.4-8.2)
[2022-09-04 11:32] LABS: CALCIUM 8.9 mg/dL (8.5-10.1)
[2022-09-04 11:36] LABS: CREATININE 1.3 mg/dL (0.55-1.3)
[2022-09-04 11:38] LABS: BILIRUBIN,TOTAL 0.4 mg/dL (0.2-1)
[2022-09-04] MEDS ORDERED: ERTAPENEM SODIUM 1 GM in SODIUM CHLORIDE 50 ML IVPB SCH (12:15)
[2022-09-04] MEDS: POLYETHYLENE GLYCOL (HEALTHYLAX) 3350 17 GM PACKET PO SCH ×2 (13:09→21:21)
[2022-09-04] MEDS: ERTAPENEM SODIUM 1 GM in SODIUM CHLORIDE 50 ML IVPB SCH (15:17)
[2022-09-04] MEDS: ROSUVASTATIN CA 20 MG TABLET PO SCH (21:21)
[2022-09-05 07:45] LABS: BASO % 0.3 % (0-2.0); EOS % 4.2 % (0-4.5); HEMATOCRIT 37.2 % (35.4-49); HEMOGLOBIN 12.7 GM/dL (11.7-16.9); LYMPH % 42.2 % (8-40); MCH 28.3 pg (25.7-33.7); MEAN CELL VOLUME 83.2 fl (80-96); MEAN PLT VOLUME 7.6 fl (7.5-11.1); MONO % 9.6 % (3.8-10.2); NEUT % 43.7 % (42.8-82.8); PLATELET COUNT 334 10^3/uL (134-434); RBC 4.46 M/mm3 (4.00-5.60); RDW 14.8 % (11.9-15.9); WHITE BLOOD COUNT 3.9 K/mm3 (4.0-10.0)
[2022-09-05] MEDS: TAMSULOSIN HCL 0.4 MG CAP PO SCH (08:12)
[2022-09-05 08:16] LABS: CALCIUM 9.1 mg/dL (8.5-10.1)
[2022-09-05 08:17] LABS: BLOOD UREA NITROGEN 16.7 mg/dL (7-18)
[2022-09-05 08:20] LABS: CREATININE 1.2 mg/dL (0.55-1.3)
[2022-09-05] MEDS: metoPROLOL SUCCINATE 25 MG TAB.SR.24H (FP) PO SCH (09:11)
[2022-09-05] MEDS: POLYETHYLENE GLYCOL (HEALTHYLAX) 3350 17 GM PACKET PO SCH ×2 (09:12→21:40)
[2022-09-05] MEDS: ENOXAPARIN NA (PORCINE) 40 MG/0.4 ML DISP.SYRIN SQ SCH (09:12)
[2022-09-05] MEDS: FINASTERIDE 5 MG TABLET (FP) PO SCH (09:12)
[2022-09-05] MEDS: ERTAPENEM SODIUM 1 GM in SODIUM CHLORIDE 50 ML IVPB SCH (10:32)
[2022-09-05] MEDS: ROSUVASTATIN CA 20 MG TABLET PO SCH (21:40)
[2022-09-06 09:01] LABS: BASO % 0.4 % (0-2.0); EOS % 3.1 % (0-4.5); HEMATOCRIT 38.6 % (35.4-49); HEMOGLOBIN 12.9 GM/dL (11.7-16.9); MCH 28.1 pg (25.7-33.7); MCHC 33.6 g/dl (32.0-35.9); MEAN CELL VOLUME 83.8 fl (80-96); MEAN PLT VOLUME 7.6 fl (7.5-11.1); MONO % 5.7 % (3.8-10.2); NEUT % 50.8 % (42.8-82.8); PLATELET COUNT 367 10^3/uL (134-434); RDW 14.9 % (11.9-15.9); WHITE BLOOD COUNT 4.2 K/mm3 (4.0-10.0)
[2022-09-06 09:14] LABS: CALCIUM 8.9 mg/dL (8.5-10.1)
[2022-09-06 09:18] LABS: CREATININE 1.1 mg/dL (0.55-1.3)
[2022-09-06] MEDS: TAMSULOSIN HCL 0.4 MG CAP PO SCH (10:29)
[2022-09-06] MEDS: FINASTERIDE 5 MG TABLET (FP) PO SCH (10:29)
[2022-09-06] MEDS: ENOXAPARIN NA (PORCINE) 40 MG/0.4 ML DISP.SYRIN SQ SCH (10:30)
[2022-09-06] MEDS: metoPROLOL SUCCINATE 25 MG TAB.SR.24H (FP) PO SCH (10:30)
[2022-09-06] MEDS: POLYETHYLENE GLYCOL (HEALTHYLAX) 3350 17 GM PACKET PO SCH ×2 (10:30→21:23)
[2022-09-06] MEDS: ERTAPENEM SODIUM 1 GM in SODIUM CHLORIDE 50 ML IVPB SCH (12:19)
[2022-09-06] MEDS: ROSUVASTATIN CA 20 MG TABLET PO SCH (21:23)
[2022-09-07 09:03] LABS: BASO % 0.3 % (0-2.0); EOS % 2.5 % (0-4.5); HEMATOCRIT 37.4 % (35.4-49); HEMOGLOBIN 12.7 GM/dL (11.7-16.9); LYMPH % 32.1 % (8-40); MCH 27.9 pg (25.7-33.7); MEAN PLT VOLUME 7.6 fl (7.5-11.1); MONO % 7.1 % (3.8-10.2); PLATELET COUNT 360 10^3/uL (134-434); RBC 4.57 M/mm3 (4.00-5.60); RDW 14.4 % (11.9-15.9); WHITE BLOOD COUNT 4.9 K/mm3 (4.0-10.0)
[2022-09-07] MEDS: ERTAPENEM SODIUM 1 GM in SODIUM CHLORIDE 50 ML IVPB SCH (09:15)
[2022-09-07] MEDS: metoPROLOL SUCCINATE 25 MG TAB.SR.24H (FP) PO SCH (09:17)
[2022-09-07] MEDS: ENOXAPARIN NA (PORCINE) 40 MG/0.4 ML DISP.SYRIN SQ SCH (09:17)
[2022-09-07] MEDS: FINASTERIDE 5 MG TABLET (FP) PO SCH (09:17)
[2022-09-07] MEDS: TAMSULOSIN HCL 0.4 MG CAP PO SCH (09:17)
[2022-09-07] MEDS: POLYETHYLENE GLYCOL (HEALTHYLAX) 3350 17 GM PACKET PO SCH ×3 (09:19→21:29)
[2022-09-07 09:21] LABS: BLOOD UREA NITROGEN 16.8 mg/dL (7-18)
[2022-09-07 09:23] LABS: CALCIUM 9.2 mg/dL (8.5-10.1)
[2022-09-07 09:25] LABS: CREATININE 1.1 mg/dL (0.55-1.3)
[2022-09-07 14:48] VITALS: RESP 18
[2022-09-07] MEDS: ROSUVASTATIN CA 20 MG TABLET PO SCH (21:28)
[2022-09-08 10:15] LABS: BASO % 0.4 % (0-2.0); EOS % 2.9 % (0-4.5); HEMATOCRIT 37.2 % (35.4-49); HEMOGLOBIN 12.8 GM/dL (11.7-16.9); LYMPH % 31.1 % (8-40); MCH 28.6 pg (25.7-33.7); MCHC 34.4 g/dl (32.0-35.9); MEAN PLT VOLUME 7.8 fl (7.5-11.1); MONO % 6.4 % (3.8-10.2); NEUT % 59.2 % (42.8-82.8); PLATELET COUNT 368 10^3/uL (134-434); RBC 4.48 M/mm3 (4.00-5.60); RDW 14.6 % (11.9-15.9); WHITE BLOOD COUNT 5.2 K/mm3 (4.0-10.0)
[2022-09-08 10:19] VITALS: BP 148/77; PULSE 66; TEMP 97.4
[2022-09-08 10:43] LABS: BLOOD UREA NITROGEN 16.8 mg/dL (7-18)
[2022-09-08 10:46] LABS: CREATININE 1.1 mg/dL (0.55-1.3)
[2022-09-08] MEDS: metoPROLOL SUCCINATE 25 MG TAB.SR.24H (FP) PO SCH (10:48)
[2022-09-08] MEDS: FINASTERIDE 5 MG TABLET (FP) PO SCH (10:48)
[2022-09-08] MEDS: TAMSULOSIN HCL 0.4 MG CAP PO SCH (10:49)
[2022-09-08] MEDS: POLYETHYLENE GLYCOL (HEALTHYLAX) 3350 17 GM PACKET PO SCH ×2 (10:49→11:05)
[2022-09-08] MEDS: ENOXAPARIN NA (PORCINE) 40 MG/0.4 ML DISP.SYRIN SQ SCH (10:49)
[2022-09-08] MEDS: ERTAPENEM SODIUM 1 GM in SODIUM CHLORIDE 50 ML IVPB SCH (10:50)
== END 2022-09-08 14:58 | disposition home or self-care (01) | DRG 728 ==
LOC: JER 08:46 → JERBED 12:46 → OBSVTOIN 14:49 → J6S 18:05
PROVIDERS: ADMIT Internal Medicine; ATTEND Internal Medicine
PROC: 02HV33Z Insertion of Infusion Device into Superior Vena Cava, Percutaneous Approach (ICD-10-PCS; principal; 2022-09-08)
DX: N45.1 Epididymitis (principal); N39.0 Urinary tract infection, site not specified; N17.9 Acute kidney failure, unspecified; Z16.12 Extended spectrum beta lactamase (ESBL) resistance; I10 Essential (primary) hypertension; I20.9 Angina pectoris, unspecified; E78.5 Hyperlipidemia, unspecified; R07.89 Other chest pain; R01.1 Cardiac murmur, unspecified; R31.9 Hematuria, unspecified; B96.20 Unspecified Escherichia coli [E. coli] as the cause of diseases classified elsewhere; K59.00 Constipation, unspecified
CPT/HCPCS: 36415; 36569; 71046-TC-FY; 73030-TC-LT-FY; 74176-TC; 76870-TC; 77001-TC-FY; 80048; 80053; 81003; 83735; 84100; 84484; 85025; 85610; 85730; 87086; 87186; 93005; 93010; 93306-TC; 99285-25; C1751; C9803-CS; G0378; U0003; U0005

== ENCOUNTER 2022-09-23 04:02 | Day surgery (SDC) | payer OTHER ==
[2022-09-21 15:13] VITALS: BMI 32.3
[~2022-09-23 04:02] MED LIST: ERTAPENEM SODIUM 1 GM VIAL IVPB ONE; LIDOCAINE HCL 2% JELLY 10 ML CARTRIDGE TP ONE; ceFAZolin SODIUM 1 GM VIAL IVPB ONE
[2022-09-23] MEDS ORDERED: oxyCODONE HCL 5 MG TABLET PO PRN (09:07)
[2022-09-23] MEDS ORDERED: ONDANSETRON 4 MG/2 ML VIAL IVPUSH PRN (09:07)
[2022-09-23] MEDS ORDERED: ERTAPENEM SODIUM 1 GM VIAL ONE (09:27)
[2022-09-23] MEDS ORDERED: ERTAPENEM SODIUM 1 GM VIAL IVPB ONE (09:40)
[2022-09-23] MEDS ORDERED: MIDAZOLAM HCL 2 MG/2 ML SINGLE DOSE VIAL ONE ×2 (09:41→09:48)
[2022-09-23] MEDS ORDERED: LIDOCAINE HCL 2% JELLY 10 ML CARTRIDGE TP ONE (09:48)
[2022-09-23] MEDS ORDERED: ePHEDrine SULFATE 50 MG/1 ML AMPULE ONE (10:17)
[2022-09-23 12:53] VITALS: TEMP 98.2
[2022-09-23 15:18] VITALS: BP 108/55; PULSE 70; RESP 20
== END 2022-09-23 15:13 | disposition home or self-care (01) ==
LOC: JASU-SURG 04:02
PROVIDERS: ATTEND Urology
PROC: 0VT08ZZ Resection of Prostate, Via Natural or Artificial Opening Endoscopic (ICD-10-PCS; 2022-09-23)
PROC: 0T7D8ZZ Dilation of Urethra, Via Natural or Artificial Opening Endoscopic (ICD-10-PCS; principal; 2022-09-23 09:00)
DX: N40.1 Benign prostatic hyperplasia with lower urinary tract symptoms (principal); R33.8 Other retention of urine; N35.811 Other urethral stricture, male, meatal
CPT/HCPCS: 88305-TC; 94760